=== PATIENT | male | born 1975 | race Caucasian/White ===

== ENCOUNTER 2025-02-11 15:32 | Emergency (ER) | payer OTHER, SELFPAY ==
[2025-02-11 15:38] VITALS: BP 144/101
[2025-02-11 16:10] LABS: Hematocrit 41.3 % (39.0-52.0); Hemoglobin 14.2 g/dL (13.0-18.0); Mean Corp Hgb Conc. 34.4 g/dL (33.0-37.0); Mean Corpuscular Volume 85.0 fL (80.0-94.0); Nucleated Red Blood Cells % 0 % (-); Platelet Count 299 10^3/uL (130-400); Red Cell Dist. Width 12.0 % (11.5-14.5)
--- NOTE | 2025-02-11 16:19 | ED.GENMED ---
History of Present Illness
General
Chief Complaint: Abdominal Symptoms
Time Seen by Provider: 02/11/25 16:09
History of Present Illness
History of Present Illness:
49-year-old male presents the emergency department for evaluation of a palpable lump above his umbilicus that he has noticed for 1 week. He notes he feels bloated on occasion. Denies any overt pain. No fevers or night sweats. Prior history of
inguinal hernia repair
Review of Systems
Review of Systems
Allergies reviewed?: Yes
All Other Systems: ROS reviewed and negative except as documented in HPI and ROS
Phy Exam
Physical Exam
Physical Exam:
GEN: Well appearing, NAD, WDWN
HEENT: Oral mucosa moist, no scleral icterus
Cardiac: Regular rate
Lung: No respiratory distress, no tachypnea
Abdomen: Soft, no significant tenderness to palpation no palpable mass
MSK: No gross deformity or injuries
Skin: Good color, no pallor or jaundice, no rashes
Neuro: AO x3, moves all extremities freely
Psych: Calm, cooperative
Course
Orders/Labs/Results
Orders:
Orders
02/11/25 15:41
Electrocardiogram (*1) Urgent
Reason for Study: Abdominal Pain
EKG- Treatment ONCE
IV Insert/Care/Rem.- Treatment PRN
Straight cath- Treatment ONCE
02/11/25 15:55
Complete Blood Count/With Diff Urgent
Comprehensive Metabolic Panel Urgent
02/11/25 16:19
US Abdomen Complete/Upper Urgent
Comment:
Reason For Exam: bloating, periumbilical pain/?mass
02/11/25 15:55
02/11/25 15:55
Vital Signs
Initial and Last Documented VS:
Initial Vital Signs
Temp Pulse Resp BP Pulse Ox
98.6 F 92 18 144/101 95
02/11/25 15:38 09/20/25 15:38 02/11/25 15:38 02/11/25 15:38 02/11/25 15:38
Last Documented Vital Signs
Temp Pulse Resp BP Pulse Ox
98.6 F 92 18 144/101 95
02/11/25 15:38 02/11/25 15:38 02/11/25 15:38 02/11/25 15:38 02/11/25 16:19
MDM/Problems Addressed
MDM/Problems Addressed:
Exam unremarkable, ultrasound obtained for confirmation of no palpable mass or lymphadenopathy and this was reassuring
*Pulse Oximetry
SaO2: 95
Oxygen Mode of Delivery: Room air
Patient hypoxic: no
*Critical Care Note
Total Time (30-74mins, 75-104mins- exclusive of procedures): Not Applicable
ED Attending Note
-
Portions of this chart may have been created with voice recognition software.� Occasional wrong word or��sound alike� substitutions may have occurred due to the inherent limitations of voice recognition software.
Discharge Plan
Departure
Patient Disposition: Home (Routine Discharge)
Date of Disposition: 02/11/25
Time of Disposition: 17:29
Patient with high blood pressure during this ER visit?: No
Discharge Problem:
Abdominal bloating
Instructions: Abdominal Pain
Prescriptions:
No Action
levothyroxine 25 mcg Tablet
25 mcg PO DAILY
fluticasone propionate [Flonase Allergy Relief] 50 mcg/actuation [place],Suspension
1 spray INTRANASAL PRN PRN (Reason: nasal congestion)
acetaminophen [acetaminophen] 325 mg tablet
650 mg PO Q4HPRN PRN (Reason: mild pain) Qty: 1 0RF
ibuprofen 200 mg tablet
400 - 600 mg PO Q6HPRN PRN (Reason: moderate pain) Qty: 1 0RF
oxycodone 5 mg tablet
5 mg PO Q4HPRN PRN (Reason: breakthrough/severe pain) Qty: 10 0RF
Referrals:
Medhat Bae MD [Family Provider, Internal Medicine]
Interventions
Interventions:
*Risk Screen - Suicide Last Done: 02/11/25 15:38
*General Assessment Last Done: 02/11/25 17:37
*Neglect/Abuse Screening Last Done: 02/11/25 15:38
*ED- Fall Risk Assessment Last Done: 02/11/25 17:37
*ED COVID-19 Vaccine History Last Done: 02/11/25 17:37
*Nursing Disposition Last Done: 02/11/25 17:37
UL-Gbyxmr-Krygwqttvo Assessment Last Done: 02/11/25 17:19
Discharge Date and Time
Discharge Date/Time: 02/11/25 17:38
Print Language: BANGLADESHI
[2025-02-11 16:36] LABS: ALT (SGPT) 27 U/L (0-50); AST (SGOT) 19 U/L (17-59); Albumin 4.3 g/dl (3.5-5.0); Alkaline Phosphatase 81 U/L (38-126); Blood Urea Nitrogen 16 mg/dl (9-20); Calcium 9.4 mg/dl (8.4-10.2); Carbon Dioxide 26 mmol/L (22-30); Chloride 105 mmol/L (98-107); Glucose 89 mg/dl (70-99); Potassium 3.9 mmol/L (3.5-5.1); Sodium 137 mmol/L (135-145); Total Protein 7.1 g/dl (6.3-8.2); eGFR > 60.00
== END 2025-02-11 17:38 | disposition home or self-care (01) ==
LOC: EMR 15:32
PROVIDERS: Emergency Medicine; EMERGENCY PHYSICIAN Emergency Medicine; FAMILY PHYSICIAN Internal Medicine
DX: R14.0 Abdominal distension (gaseous) (principal)
CPT/HCPCS: 99284; 76700; 80053; 85025; 93005